=== PATIENT | male | born 1965 | race Caucasian/White ===

== ENCOUNTER 2017-04-02 13:36 | Inpatient (IN) | payer OTHER ==
[~2017-04-02] VITALS: Ht 185.4 cm; Wt 165.0 kg
[2017-04-02 14:38] LABS: HEMATOCRIT 42.9 % (39.0-50.0); HEMOGLOBIN 14.2 g/dl (14.0-18.0); IMMATURE GRANULOCYTES 0.8 % (0.0-1.0); MEAN CELL VOLUME 82.5 fL CALC (80.0-100.0); MEAN CORPUSCULAR HGB 27.3 pG CALC (26.0-32.0); MEAN CORPUSCULAR HGB CONC 33.1 g/L CALC (32.0-36.0); NEUT# 13.65 thou/uL (1.82-7.42); RED BLOOD COUNT 5.2 mill/uL (4.70-6.10); RED CELL DISTRI WIDTH 13.6 % (11.5-15.5); URINE BILIRUBIN - DIPSTICK NEGATIVE (NEGATIVE); URINE BLOOD DIPSTICK LARGE (NEGATIVE); URINE COLOR YELLOW; URINE GLUCOSE - DIPSTICK NEGATIVE (NEGATIVE); URINE KETONE TRACE mg/dL (NEGATIVE); URINE LEUK ESTERASE NEGATIVE (NEGATIVE); URINE PROTEIN - DIPSTICK 100 mg/dL (NEG-TRACE); URINE SPECIFIC GRAVITY >=1.030; URINE UROBILINOGEN - DIPSTICK 0.2 E.U./dL (0.2)
[2017-04-02 14:40] LABS: URINE CLARITY CLEAR; URINE NITRITE - DIPSTICK NEGATIVE (Negative)
[2017-04-02 14:46] LABS: URINE BACTERIA RARE hpf; URINE EPITHELIAL CELLS RARE EPI/hpf (0-FEW); URINE MUCUS FEW hpf (NONE-FEW)
[2017-04-02 14:52] LABS: ALKALINE PHOSPHATASE 44 u/l (38-126); ANION GAP 16 (6-22 (CALC)); BILIRUBIN, TOTAL 1.9 mg/dL (0.0-1.4); BUN 16 mg/dL (9-20); BUN/CREATININE RATIO 17 (12-20 (CALC)); CALCIUM 8.8 mg/dL (8.4-10.2); CARBON DIOXIDE 24 mmol/l (22-30); CHLORIDE 100 mmol/l (95-108); GFR > 60 ML/MIN (>=60 (CALC)); GFR FOR AFR.AMER. > 60 ML/MIN (>=60 (CALC)); GLUCOSE 174 mg/dL (75-110); POTASSIUM 4.1 mmol/l (3.5-5.1); SGOT/AST 26 u/l (17-59); SGPT/ALT 41 u/l (21-72); SODIUM 137 mmol/l (137-146); TOTAL PROTEIN 7.5 g/dL (6.3-8.2)
[2017-04-02] MEDS ORDERED: VICTOZA18 MG/3 ML SC (16:45)
[2017-04-02] MEDS ORDERED: KAZANO1000 MG PO (16:45)
[2017-04-02] MEDS ORDERED: LISINOPRIL20 MG PO (16:46)
[2017-04-02] MEDS ORDERED: AMLODIPINE5 MG PO (16:46)
[2017-04-02] MEDS ORDERED: ASPIRIN81 MG PO (16:47)
[2017-04-02 17:14] VITALS: BP 115/76
[2017-04-02 19:15] VITALS: BP 108/68
[2017-04-02 23:05] VITALS: BP 147/83
[2017-04-03 03:35] VITALS: BP 127/68
[2017-04-03 05:57] LABS: HEMATOCRIT 43.7 % (39.0-50.0); HEMOGLOBIN 14.3 g/dl (14.0-18.0); MEAN CELL VOLUME 83.7 fL CALC (80.0-100.0); MEAN CORPUSCULAR HGB 27.4 pG CALC (26.0-32.0); MEAN CORPUSCULAR HGB CONC 32.7 g/L CALC (32.0-36.0); RED BLOOD COUNT 5.22 mill/uL (4.70-6.10); RED CELL DISTRI WIDTH 13.8 % (11.5-15.5)
[2017-04-03 06:03] LABS: ANION GAP 15 (6-22 (CALC)); BUN 15 mg/dL (9-20); BUN/CREATININE RATIO 17 (12-20 (CALC)); CALCIUM 8.7 mg/dL (8.4-10.2); CALCULATED LDLCHOLESTEROL 69 mg/dL (62-129 (CALC)); CARBON DIOXIDE 26 mmol/l (22-30); CHLORIDE 103 mmol/l (95-108); CHOLESTEROL HDL RATIO 2.8 (<4.4 (CALC)); CREATININE 0.8 mg/dL (0.7-1.3); GFR > 60 ML/MIN (>=60 (CALC)); GFR FOR AFR.AMER. > 60 ML/MIN (>=60 (CALC)); GLUCOSE 181 mg/dL (75-110); HDL CHOLESTEROL 46 mg/dL (>=40); POTASSIUM 3.8 mmol/l (3.5-5.1); SODIUM 140 mmol/l (137-146); TOTAL CHOLESTEROL 130 mg/dl (0-199); TOTAL TRIGLYCERIDES 69 mg/dl (30-149); VLDL CHOLESTROL 14 mg/dl (8-62 (CALC))
[2017-04-03 07:55] VITALS: BP 117/79
[2017-04-03 11:12] VITALS: BP 114/82
[2017-04-03 15:35] VITALS: BP 139/88
[2017-04-03 18:55] VITALS: BP 117/69
[2017-04-04 00:16] VITALS: BP 113/74
[2017-04-04 03:49] VITALS: BP 134/89
[2017-04-04 06:50] LABS: ANION GAP 13 (6-22 (CALC)); BUN 13 mg/dL (9-20); BUN/CREATININE RATIO 18 (12-20 (CALC)); CALCIUM 8.1 mg/dL (8.4-10.2); CARBON DIOXIDE 23 mmol/l (22-30); CHLORIDE 107 mmol/l (95-108); CREATININE 0.7 mg/dL (0.7-1.3); GFR > 60 ML/MIN (>=60 (CALC)); GFR FOR AFR.AMER. > 60 ML/MIN (>=60 (CALC)); GLUCOSE 128 mg/dL (75-110); POTASSIUM 4.2 mmol/l (3.5-5.1); SODIUM 139 mmol/l (137-146)
[2017-04-04 07:24] LABS: HEMATOCRIT 41.1 % (39.0-50.0); HEMOGLOBIN 13.1 g/dl (14.0-18.0); IMMATURE GRANULOCYTES 0.6 % (0.0-1.0); MEAN CELL VOLUME 85.8 fL CALC (80.0-100.0); MEAN CORPUSCULAR HGB 27.3 pG CALC (26.0-32.0); MEAN CORPUSCULAR HGB CONC 31.9 g/L CALC (32.0-36.0); NEUT# 7.52 thou/uL (1.82-7.42); RED BLOOD COUNT 4.79 mill/uL (4.70-6.10)
[2017-04-04 08:00] VITALS: BP 116/77
[2017-04-04 12:01] VITALS: BP 127/84
[2017-04-04 14:55] VITALS: BP 119/77
[2017-04-04 18:00] LABS: C. DIFFICILE TOXIN A&B NEGATIVE (NEGATIVE)
[2017-04-04 19:10] VITALS: BP 131/82
[2017-04-05 00:33] VITALS: BP 132/78
[2017-04-05 03:45] VITALS: BP 167/87
[2017-04-05 06:02] LABS: HEMATOCRIT 39.1 % (39.0-50.0); HEMOGLOBIN 12.4 g/dl (14.0-18.0); IMMATURE GRANULOCYTES 0.9 % (0.0-1.0); MEAN CELL VOLUME 85.2 fL CALC (80.0-100.0); MEAN CORPUSCULAR HGB CONC 31.7 g/L CALC (32.0-36.0); NEUT# 4.73 thou/uL (1.82-7.42); RED BLOOD COUNT 4.59 mill/uL (4.70-6.10); RED CELL DISTRI WIDTH 14.2 % (11.5-15.5)
[2017-04-05 06:19] LABS: ANION GAP 13 (6-22 (CALC)); BUN 11 mg/dL (9-20); BUN/CREATININE RATIO 15 (12-20 (CALC)); CALCIUM 8.2 mg/dL (8.4-10.2); CARBON DIOXIDE 28 mmol/l (22-30); CHLORIDE 105 mmol/l (95-108); CREATININE 0.8 mg/dL (0.7-1.3); GFR > 60 ML/MIN (>=60 (CALC)); GFR FOR AFR.AMER. > 60 ML/MIN (>=60 (CALC)); GLUCOSE 148 mg/dL (75-110); POTASSIUM 3.8 mmol/l (3.5-5.1); SODIUM 143 mmol/l (137-146)
[2017-04-05 08:31] VITALS: BP 143/88
[2017-04-05 11:20] VITALS: BP 127/87
[2017-04-05 15:15] VITALS: BP 134/89
[2017-04-05 19:05] VITALS: BP 139/81
[2017-04-06 00:27] VITALS: BP 136/87
[2017-04-06 05:20] VITALS: BP 141/85
[2017-04-06 06:04] LABS: HEMATOCRIT 37.1 % (39.0-50.0); HEMOGLOBIN 11.9 g/dl (14.0-18.0); IMMATURE GRANULOCYTES 2.3 % (0.0-1.0); MEAN CELL VOLUME 85.5 fL CALC (80.0-100.0); MEAN CORPUSCULAR HGB 27.4 pG CALC (26.0-32.0); MEAN CORPUSCULAR HGB CONC 32.1 g/L CALC (32.0-36.0); NEUT# 4.94 thou/uL (1.82-7.42); RED BLOOD COUNT 4.34 mill/uL (4.70-6.10); RED CELL DISTRI WIDTH 13.8 % (11.5-15.5)
[2017-04-06 06:27] LABS: ANION GAP 13 (6-22 (CALC)); BUN 8 mg/dL (9-20); BUN/CREATININE RATIO 10 (12-20 (CALC)); CALCIUM 8.3 mg/dL (8.4-10.2); CARBON DIOXIDE 31 mmol/l (22-30); CHLORIDE 103 mmol/l (95-108); CREATININE 0.8 mg/dL (0.7-1.3); GFR > 60 ML/MIN (>=60 (CALC)); GFR FOR AFR.AMER. > 60 ML/MIN (>=60 (CALC)); GLUCOSE 142 mg/dL (75-110); SODIUM 143 mmol/l (137-146)
[2017-04-06 09:52] VITALS: BP 153/88
[2017-04-06 11:12] VITALS: BP 147/85
[2017-04-06 15:37] VITALS: BP 135/87
[2017-04-06 18:50] VITALS: BP 140/99
[2017-04-07] VITALS: BP 136/78
[2017-04-07 04:39] VITALS: BP 136/91
[2017-04-07 07:12] LABS: HEMATOCRIT 36.6 % (39.0-50.0); IMMATURE GRANULOCYTES 2.3 % (0.0-1.0); MEAN CELL VOLUME 83.6 fL CALC (80.0-100.0); MEAN CORPUSCULAR HGB 27.4 pG CALC (26.0-32.0); MEAN CORPUSCULAR HGB CONC 32.8 g/L CALC (32.0-36.0); NEUT# 5.59 thou/uL (1.82-7.42); RED BLOOD COUNT 4.38 mill/uL (4.70-6.10); RED CELL DISTRI WIDTH 13.5 % (11.5-15.5)
[2017-04-07 07:33] LABS: ANION GAP 12 (6-22 (CALC)); BUN 9 mg/dL (9-20); BUN/CREATININE RATIO 13 (12-20 (CALC)); CALCIUM 8.2 mg/dL (8.4-10.2); CARBON DIOXIDE 29 mmol/l (22-30); CHLORIDE 106 mmol/l (95-108); CREATININE 0.7 mg/dL (0.7-1.3); GFR > 60 ML/MIN (>=60 (CALC)); GFR FOR AFR.AMER. > 60 ML/MIN (>=60 (CALC)); GLUCOSE 154 mg/dL (75-110); POTASSIUM 3.9 mmol/l (3.5-5.1); SODIUM 143 mmol/l (137-146)
[2017-04-07 08:08] VITALS: BP 149/86
[2017-04-07 11:00] VITALS: BP 124/78; BP 136/90
== END 2017-04-07 15:01 | DRG 603 ==
LOC: ED 13:36 → ED-I 15:36 → ED 15:50 → MS2 15:51
PROVIDERS: Emergency Medicine; Internal Medicine; Nurse Practitioner Family; ADMIT Internal Medicine; ATTEND Internal Medicine
PROC: 0HDLXZZ Extraction of Left Lower Leg Skin, External Approach (ICD-10-PCS; principal; 2017-04-07)
DX: L03.116 Cellulitis of left lower limb (principal); E11.42 Type 2 diabetes mellitus with diabetic polyneuropathy; Z68.42 Body mass index [BMI] 45.0-49.9, adult; E66.01 Morbid (severe) obesity due to excess calories; L02.426 Furuncle of left lower limb; I10 Essential (primary) hypertension; R11.2 Nausea with vomiting, unspecified; R19.7 Diarrhea, unspecified; Z79.84 Long term (current) use of oral hypoglycemic drugs
CPT/HCPCS: J0692; J3370

== ENCOUNTER 2017-10-08 23:07 | Emergency (ER) | payer OTHER ==
[~2017-10-08] VITALS: Ht 185.4 cm; Wt 176.6 kg
[~2017-10-08 23:07] MED LIST: AMLODIPINE5 MG PO; ASPIRIN81 MG PO; KAZANO1000 MG PO; LISINOPRIL20 MG PO; VICTOZA18 MG/3 ML SC
[2017-10-09] MEDS ORDERED: ULTRAM50 M1 PO (00:03)
[2017-10-09] MEDS ORDERED: BACTRIM DS1 TAB PO (00:03)
[2017-10-09 00:22] VITALS: BP 131/72
== END 2017-10-09 00:15 | disposition home or self-care (01) | DRG 603 ==
LOC: ED 23:07
PROC: 0H94XZZ Drainage of Neck Skin, External Approach (ICD-10-PCS; principal; 2017-10-08)
DX: L02.11 Cutaneous abscess of neck (principal); I10 Essential (primary) hypertension; E11.9 Type 2 diabetes mellitus without complications; B95.61 Methicillin susceptible Staphylococcus aureus infection as the cause of diseases classified elsewhere; Z87.442 Personal history of urinary calculi

== ENCOUNTER 2017-10-09 18:35 | Emergency (ER) | payer OTHER ==
[~2017-10-09] VITALS: Ht 185.4 cm; Wt 170.0 kg
[~2017-10-09 18:35] MED LIST changes: +BACTRIM DS1 TAB PO; +ULTRAM50 M1 PO
[2017-10-09 19:05] VITALS: BP 174/100
== END 2017-10-09 19:05 | disposition home or self-care (01) | DRG 951 ==
LOC: ED 18:35
DX: Z48.01 Encounter for change or removal of surgical wound dressing (principal); E11.9 Type 2 diabetes mellitus without complications; I10 Essential (primary) hypertension; Z87.442 Personal history of urinary calculi

== ENCOUNTER 2021-03-30 11:30 | Emergency (ER) | payer BC ==
[~2021-03-30] VITALS: Ht 185.4 cm; Wt 163.6 kg
[2021-03-30 12:13] LABS: IMMATURE GRANULOCYTES 0.4 % (0.0-5.0); MEAN CELL VOLUME 85.7 fL CALC (80.0-100.0); MEAN CORPUSCULAR HGB 27.5 pG CALC (26.0-32.0); MEAN CORPUSCULAR HGB CONC 32.1 g/dL CAL (32.0-36.0); NEUT# 3.25 thou/uL (1.82-7.42); RED BLOOD COUNT 5.38 mill/uL (4.70-6.10); RED CELL DISTRI WIDTH 13.1 % (11.5-15.5)
[2021-03-30 12:14] LABS: HEMATOCRIT 46.1 % (39.0-50.0); HEMOGLOBIN 14.8 g/dl (14.0-18.0)
[2021-03-30 12:27] LABS: ALKALINE PHOSPHATASE 60 u/l (38-126); ANION GAP 10 (6-22 (CALC)); BUN 15 mg/dL (9-20); BUN/CREATININE RATIO 19 (12-20 (CALC)); CARBON DIOXIDE 30 mmol/l (22-30); CHLORIDE 100 mmol/l (95-108); CREATININE 0.8 mg/dL (0.7-1.3); GFR > 60 ML/MIN (>=60 (CALC)); GFR FOR AFR.AMER. > 60 ML/MIN (>=60 (CALC)); LIPASE 187 u/l (23-300); POTASSIUM 4.1 mmol/l (3.5-5.1); SGOT/AST 23 u/l (17-59); SODIUM 136 mmol/l (137-146); TOTAL PROTEIN 7.3 g/dL (6.3-8.2)
[2021-03-30 12:29] LABS: ACT PARTIAL THROMBO TIME 22.3 SECONDS (20.0-32.5)
[2021-03-30 12:32] LABS: BILIRUBIN, TOTAL 0.9 mg/dL (0.0-1.4)
[2021-03-30 12:39] LABS: D-DIMER 1.16 mg/L (0.19-0.60)
[2021-03-30] MEDS ORDERED: JANUMET1 TAB PO (13:25)
[2021-03-30] MEDS ORDERED: ROSUVASTATIN CAL5 MG PO (13:26)
[2021-03-30] MEDS ORDERED: HYDROCHLOROT25 MG PO (13:26)
[2021-03-30] MEDS ORDERED: VENTOLIN HFA IN (14:35)
[2021-03-30] MEDS ORDERED: ZPAK PO (14:35)
[2021-03-30] MEDS ORDERED: MEDDOSEPAK PO (14:35)
[2021-03-30 16:19] VITALS: BP 141/79
== END 2021-03-30 16:19 | disposition home or self-care (01) | DRG 195 ==
LOC: ED 11:30
DX: J18.9 Pneumonia, unspecified organism (principal); I10 Essential (primary) hypertension; E11.9 Type 2 diabetes mellitus without complications; Z79.84 Long term (current) use of oral hypoglycemic drugs; Z20.822 Contact with and (suspected) exposure to COVID-19
CPT/HCPCS: Q9967

== ENCOUNTER 2021-04-04 14:30 | Emergency (ER) | payer BC ==
[~2021-04-04] VITALS: Ht 185.4 cm; Wt 105.0 kg
[~2021-04-04 14:30] MED LIST changes: +HYDROCHLOROT25 MG PO; +JANUMET1 TAB PO; +MEDDOSEPAK PO; +ROSUVASTATIN CAL5 MG PO; +VENTOLIN HFA IN; +ZPAK PO
[2021-04-04 15:33] LABS: HEMOGLOBIN 15.5 g/dl (14.0-18.0); IMMATURE GRANULOCYTES 0.7 % (0.0-5.0); MEAN CELL VOLUME 84.1 fL CALC (80.0-100.0); MEAN CORPUSCULAR HGB 27.7 pG CALC (26.0-32.0); NEUT# 4.62 thou/uL (1.82-7.42); RED BLOOD COUNT 5.59 mill/uL (4.70-6.10)
[2021-04-04 15:54] LABS: ALBUMIN 4.2 g/dL (3.2-5.0); ALKALINE PHOSPHATASE 70 u/l (38-126); ANION GAP 10 (6-22 (CALC)); BILIRUBIN, TOTAL 0.9 mg/dL (0.0-1.4); BUN 15 mg/dL (9-20); BUN/CREATININE RATIO 21 (12-20 (CALC)); CARBON DIOXIDE 31 mmol/l (22-30); CHLORIDE 100 mmol/l (95-108); CREATININE 0.7 mg/dL (0.7-1.3); GFR > 60 ML/MIN (>=60 (CALC)); GFR FOR AFR.AMER. > 60 ML/MIN (>=60 (CALC)); POTASSIUM 3.8 mmol/l (3.5-5.1); SGOT/AST 19 u/l (17-59); SODIUM 137 mmol/l (137-146); TOTAL PROTEIN 7.8 g/dL (6.3-8.2)
[2021-04-04] MEDS ORDERED: TESSALON PERLE100 MG PO (18:46)
[2021-04-04] MEDS ORDERED: PREDNISONE10 MG PO (18:46)
[2021-04-04] MEDS ORDERED: COMBIVENT RESPIMAT IN (18:46)
[2021-04-04 18:52] VITALS: BP 159/92
== END 2021-04-04 19:00 | disposition home or self-care (01) | DRG 203 ==
LOC: ED 14:30
PROVIDERS: Emergency Medicine
DX: J45.909 Unspecified asthma, uncomplicated (principal); I10 Essential (primary) hypertension; E11.9 Type 2 diabetes mellitus without complications; Z87.442 Personal history of urinary calculi; Z20.822 Contact with and (suspected) exposure to COVID-19

== ENCOUNTER 2023-12-10 18:38 | Emergency (ER) | payer OTHER ==
[~2023-12-10] VITALS: Ht 185.4 cm; Wt 161.0 kg
[~2023-12-10 18:38] MED LIST changes: +COMBIVENT RESPIMAT IN; +PREDNISONE10 MG PO; +TESSALON PERLE100 MG PO
[2023-12-10] MEDS ORDERED: KETOROLAC TROMETHAMINE 30 MG/ML SDV IV ONE (19:15)
[2023-12-10] MEDS ORDERED: SODIUM CHLORIDE 0.9% 1,000 ML IV STA (19:15)
[2023-12-10 19:31] LABS: URINE BILIRUBIN - DIPSTICK Negative (NEGATIVE); URINE BLOOD DIPSTICK Negative (NEGATIVE); URINE GLUCOSE - DIPSTICK 500 mg/dL (NEGATIVE); URINE KETONE Negative (NEGATIVE); URINE LEUK ESTERASE Negative (NEGATIVE); URINE NITRITE - DIPSTICK Negative (Negative); URINE PROTEIN - DIPSTICK Negative (NEG-TRACE); URINE SPECIFIC GRAVITY 1.015; URINE UROBILINOGEN - DIPSTICK 0.2 E.U./dL (0.2)
[2023-12-10 19:32] LABS: BASO% 0.4 % (0-3); EOS% 1.1 % (0-8); HEMATOCRIT 50.3 % (39.0-50.0); HEMOGLOBIN 16.5 g/dl (14.0-18.0); IMMATURE GRANULOCYTES 0.2 % (0.0-5.0); MEAN CELL VOLUME 83.6 fL CALC (80.0-100.0); MEAN CORPUSCULAR HGB 27.4 pG CALC (26.0-32.0); MEAN CORPUSCULAR HGB CONC 32.8 g/dL CAL (32.0-36.0); MONO% 5.7 % (2-13); NEUT# 8.37 thou/uL (1.82-7.42); NEUT% 79.6 % (42-76); RED BLOOD COUNT 6.02 mill/uL (4.70-6.10); RED CELL DISTRI WIDTH 13.1 % (11.5-15.5)
[2023-12-10 19:32] LABS: URINE COLOR Yellow
[2023-12-10 19:48] LABS: ALBUMIN 4.3 g/dL (3.2-5.0); CREATININE 0.8 mg/dL (0.7-1.3); POTASSIUM 4.4 mmol/l (3.5-5.1); TOTAL PROTEIN 7.4 g/dL (6.3-8.2)
[2023-12-10 19:49] LABS: BILIRUBIN, TOTAL 1.5 mg/dL (0.2-1.3)
[2023-12-10] MEDS ORDERED: Polyethylene Glycol 3350 17 GM/PKT PO ONE (20:05)
[2023-12-10] MEDS ORDERED: MAGNESIUM CITRATE 296 ML/BTL PO ONE (20:05)
[2023-12-10] MEDS ORDERED: TRAMADOL HCL50 MG PO (20:07)
[2023-12-10] MEDS ORDERED: CITRATE OF MEGNESIA PO (20:07)
[2023-12-10] MEDS ORDERED: MIRALAX17 GM PO (20:07)
[2023-12-10 20:24] VITALS: BP 136/86
== END 2023-12-10 20:24 | disposition home or self-care (01) | DRG 392 ==
LOC: ED 18:38
PROVIDERS: Family Medicine
DX: K59.00 Constipation, unspecified (principal); I10 Essential (primary) hypertension; E11.9 Type 2 diabetes mellitus without complications; Z87.442 Personal history of urinary calculi